=== PATIENT | female | born 1980 | race Two or more races ===

== ENCOUNTER 2017-07-10 09:00 | Inpatient (IN) | payer MEDICAID ==
[2017-07-10] VITALS (13 sets, daily range): BP systolic 102–130; BP diastolic 53–503
[~2017-07-10] VITALS: Ht 160 cm; Wt 49.8 kg
--- NOTE | 2017-07-10 10:11 | NUR ---
LANGUAGE LINE USED TO PROVIDE FURTHER INFORMATION ON WHY PT IS HERE AND WHAT ABNORMAL LABS WERE. PT NOW WITH IV ESTABLISHED, BLOOD DRAWN, URINE COLLECTED.
[2017-07-10 10:19] LABS: URINE BILIRUBIN - DIPSTICK NEGATIVE (NEGATIVE); URINE CLARITY CLEAR; URINE COLOR YELLOW; URINE GLUCOSE - DIPSTICK NEGATIVE (NEGATIVE); URINE KETONE NEGATIVE (NEGATIVE); URINE LEUK ESTERASE NEGATIVE (NEGATIVE); URINE NITRITE - DIPSTICK NEGATIVE (Negative); URINE PROTEIN - DIPSTICK NEGATIVE (NEG-TRACE); URINE UROBILINOGEN - DIPSTICK 0.2 E.U./dL (0.2)
[2017-07-10 10:22] LABS: URINE BLOOD DIPSTICK TRACE (NEGATIVE)
[2017-07-10 10:24] LABS: IMMATURE GRANULOCYTES 0.2 % (0.0-1.0); MEAN CELL VOLUME 59.5 fL CALC (80.0-100.0); MEAN CORPUSCULAR HGB 14.5 pG CALC (26.0-32.0); MEAN CORPUSCULAR HGB CONC 24.4 g/L CALC (32.0-36.0); NEUT# 2.77 thou/uL (2.00-7.15); RED BLOOD COUNT 3.31 mill/uL (4.20-5.60); RED CELL DISTRI WIDTH 20.9 % (11.5-15.5)
[2017-07-10 10:31] LABS: ALBUMIN 3.9 g/dL (3.2-5.0); ALKALINE PHOSPHATASE 44 u/l (38-126); ANION GAP 15 (6-22 (CALC)); BILIRUBIN, TOTAL 0.4 mg/dL (0.0-1.4); BUN 11 mg/dL (7-17); BUN/CREATININE RATIO 19 (12-20 (CALC)); CALCIUM 9.1 mg/dL (8.4-10.2); CARBON DIOXIDE 23 mmol/l (22-30); CHLORIDE 110 mmol/l (95-108); CREATININE 0.6 mg/dL (0.5-1.0); GFR > 60 ML/MIN (>=60 (CALC)); GFR FOR AFR.AMER. > 60 ML/MIN (>=60 (CALC)); GLUCOSE 104 mg/dL (65-105); POTASSIUM 4.3 mmol/l (3.5-5.1); SGOT/AST 17 u/l (14-36); SGPT/ALT 23 u/l (9-52); SODIUM 144 mmol/l (137-146); TOTAL PROTEIN 6.9 g/dL (6.3-8.2)
[2017-07-10 10:34] LABS: HEMATOCRIT 19.7 % (37.0-47.0); HEMOGLOBIN 4.8 g/dl (12.0-16.0)
--- NOTE | 2017-07-10 13:33 | NUR ---
FIRST UNIT OF PRBCs INFUSING WITHOUT INCIDENT. REPORT TO EDGARD, TO FLOOR SOON.
--- NOTE | 2017-07-10 13:42 | NUR ---
REPORT RECEIVED FROM EDGARD WHO RECEIVED REPORT FROM MELCHOR IN ED. PT ARRIVED ON UNIT VIA STRETCHER AND TRANSFERRED TO BED. BAG # 1 OF PRBC INFUSING AT THIS TIME, PT ALERT AND ORIENTED, SPEAKS MONGALI LANGUAGE, FAMILY MEMBER AT BEDSIDE. DENIES PAIN AT THIS TIME BUT REPORTS SHE HAS BEEN DIZZY AT TIMES BEFORE COMING TO HOSPITAL. ORIENTED TO ROOM AND CALL LING, WILL CONTINUE TO MONITOR.
--- NOTE | 2017-07-10 13:58 | NUR ---
PT TAKEN TO ROOM 270 WITHOUT INCIDENT.
--- NOTE | 2017-07-10 16:03 | NUR ---
IST UNIT PRBC INFUSED WITHOUT COMPLICATION, 2ND UNIT JUST BEGUN AND PT IS BEING MONITORED. SNACK OFFERED.
--- NOTE | 2017-07-10 17:53 | NUR ---
PT C/O HEADACHE, COOL COMPRESS OFFERED AND APPLIED, DR GREER CONTACTED AND GAVE ORDERS FOR TYLENOL, PT OFFERED TYLENOL AT THIS TIME BUT REFUSED IT STATING THE COOL COMPRESS RELIEVED HER PAIN, WILL CONTINUE TO MONITOR.
--- NOTE | 2017-07-10 18:08 | NUR ---
PT TOLERATED 2ND UNIT PRBC WELL.
--- NOTE | 2017-07-10 18:32 | NUR ---
TRANSFUSION VS DOCUMENTED BP = 126/503. CORRECT BP IS 126/53
--- NOTE | 2017-07-10 19:50 | NUR ---
PT RESTING IN SEMI FOWLERS POSITION WITH FAMILY AT BEDSIDE;ASSESSMENT COMPLETED;#20G TO LAC FLUSHED AND PATENT;RESPIRATIONS EVEN AND UNLABORED ON RA;PT EDUCATED ON RECEIVING HER LAST UNIT OF PRBC'S AND VERBALIZES UNDERSTANDING;SIGNS AND SYMPTOMS OF BLOOD TRANSFUSIONS REVIEWED AND PT AGREES;PT VOICES NO COMPLAINTS OF PAIN OR DISCOMFORTS;SAFETY PRECAUTIONS REINFORCED AND PT EDUCATED TO CALL FOR ASSISTANCE IF NEEDED;BED IN LOWEST POSITION WITH CALL [facility] IN REACH;WILL CONTINUE TO MONITOR
--- NOTE | 2017-07-10 19:52 | NUR ---
3RD UNIT OF PRBC'S ADMINISTERED BY QUINN AND CHRIS KUMAR;QUINN TO REMAIN IN THE ROOM WITH PT AND MONITOR S/S OF BLOOD TRANSFUSION REACTIONS OF X15 MINS
--- NOTE | 2017-07-10 20:23 | NUR ---
PT COMPLAINS OF HEADACHE PAIN RAING 6/10 ON THE PAIN SCALE AND REQUESTS PAIN MEDICATION;PT MEDICATED WITH PRN TYLENOL 650MG AND COOL COMPRESS PROVIDED;PT DENIES ANY OTHER NEEDS AT THIS TIME;CALL LIGHT IN REACH;WILL CONTINUE TO MONITOR
--- NOTE | 2017-07-10 22:45 | NUR ---
3RD UNIT OF PRBC'S COMPLETED AT THIS TIME;VS OBTAINED;PT COMPLAINS OF LEFT SIDED ABDOMINAL PAIN RATING 5/10 ON THE PAIN SCALE;PT REPORTS THAT PAIN MAY BE R/T GAS;PT ENCOURAGED TO WALK THE HALLS;WILL CONTINUE TO MONITOR
--- NOTE | 2017-07-10 22:55 | NUR ---
PT REPORTS NO RELIEF AFTER AMBULATING ALL 3 HALLWAYS;MD TO BE NOTIFED OF PERSISTENT PAIN
--- NOTE | 2017-07-10 23:05 | NUR ---
NOTIFED OF ABDOMINAL PAIN;ORDER FOR MORPHINE 2MG X1 NOW OBTAINED
--- NOTE | 2017-07-10 23:40 | NUR ---
PT MEDICATED WITH MORPHINE 2MG FOR LEFT SIDED ABDOMINAL PAIN RATING 5/10 ON THE PAIN SCALE;SPOUSE AND FAMILY MEMBER AT BEDSIDE;IV FLUIDS INFUSING WELL;PT DENIES ANY OTHER NEEDS AT THIS TIME;WILL CONTINUE TO MONITOR
--- NOTE | 2017-07-11 04:30 | NUR ---
NOTIFED OF PT VOMITING AND COMPLAINING OF ABDOMINAL PAIN;AWAITING NEW ORDERS AT THIS TIME
--- NOTE | 2017-07-11 05:30 | NUR ---
PT MEDICATED WITH PRN BENTYL,PROTONIX AND ZOFRAN PER MD ORDERS;SPOUSE AT BEDSIDE REPORTS NOTHING IS HELPING TO RESOLVE PAIN;LAB AT BEDSIDE;RESPIRATIONS EVEN BUT SHWLLOW,PT ENCOURAGED TO TAKE SOME DEEP BREATHS;WILL CONTINUE TO MONITOR
[2017-07-11 05:56] LABS: HEMATOCRIT 35.3 % (37.0-47.0); HEMOGLOBIN 10.3 g/dl (12.0-16.0); MEAN CELL VOLUME 69.9 fL CALC (80.0-100.0); MEAN CORPUSCULAR HGB 20.4 pG CALC (26.0-32.0); MEAN CORPUSCULAR HGB CONC 29.2 g/L CALC (32.0-36.0); RED BLOOD COUNT 5.05 mill/uL (4.20-5.60); RED CELL DISTRI WIDTH 27.9 % (11.5-15.5)
[2017-07-11 06:15] LABS: ANION GAP 16 (6-22 (CALC)); BUN 10 mg/dL (7-17); BUN/CREATININE RATIO 19 (12-20 (CALC)); CALCIUM 8.8 mg/dL (8.4-10.2); CARBON DIOXIDE 21 mmol/l (22-30); CHLORIDE 108 mmol/l (95-108); CREATININE 0.5 mg/dL (0.5-1.0); GFR > 60 ML/MIN (>=60 (CALC)); GFR FOR AFR.AMER. > 60 ML/MIN (>=60 (CALC)); GLUCOSE 97 mg/dL (65-105); SODIUM 141 mmol/l (137-146)
[2017-07-11 06:25] VITALS: BP 128/84
--- NOTE | 2017-07-11 07:00 | NUR ---
RECEIVED BEDSIDE REPORT FROM UCHE CESPEDES. RESTING IN SUPINE POSITION WITH EYES CLOSED, AWAKENS EASILY. RESPS EVEN AND UNLABORED ON ROOM AIR, TELE MONITOR IN PLACE. C/O ABD AND CHEST PAIN CONTINUES. WILL MEDICATE PER MAR. FAMILY AT BEDSIDE. #20 RAC INFUSING WITHOUT DIFFICULTY, SITE APPEARS HEALTHY. PLAN OF CARE DISCUSSED. SAFETY PRECAUTIONS REINFORCED. BED IN LOWEST POSITION WITH WHEELS LOCKED. CALL LIGHT WITHIN REACH. ENCOURAGED PT AND FAMILY TO CALL FOR ANY NEEDS.
[2017-07-11 08:42] LABS: IMMATURE GRANULOCYTES 0.9 % (0.0-1.0); NEUT# 13.57 thou/uL (2.00-7.15)
[2017-07-11 08:48] VITALS: BP 118/75
--- NOTE | 2017-07-11 11:15 | NUR ---
DR PAGE IN WITH PT, NEW ORDERS RECEIVED.
[2017-07-11 11:28] VITALS: BP 117/73
--- NOTE | 2017-07-11 13:35 | NUR ---
TO CT SCAN IN STABLE CONDITION VIA WHEELCHAIR ACCOMPANIED BY VOLUNTEER.
--- NOTE | 2017-07-11 14:10 | NUR ---
RETURNED FROM CT SCAN VIA WHEELCHAIR ACCOMPANIED BY VOLUNTEER.
--- NOTE | 2017-07-11 15:00 | NUR ---
MEDICATED WITH TYLENOL PO FOR C/O 6/10 HEADACHE. RESPS EVEN AND UNLABORED ON ROOM AIR, TELE MONITOR IN PLACE. [facility]. WILL CONTINUE TO MONITOR.
--- NOTE | 2017-07-11 15:15 | NUR ---
TO RADIOLOGY IN STABLE CONDITION VIA WHEELCHAIR ACCOMPANIED BY VOLUNTEER.
--- NOTE | 2017-07-11 15:17 | NUR ---
Spoke to patient today in [employer] regarding her medications. Patient reported having a headache with a pain level of 6. Patient was given tylenol for her headache not too long ago. Spoke to patient regaring side-effects of her medications. Patient did not have any questions/ concerns regarding her medications.
--- NOTE | 2017-07-11 15:40 | NUR ---
RETURNED FROM RADILOGY VIA WHEELCHAIR ACCOMPANIED BY VOLUNTEER. AMBULATED TO BED WITH STEADY GAIT. #22 LAC INFUSING WITHOUT DIFFICULTY, SITE APPEARS HEALTHY. CALL LIGHT WITHIN REACH. FAMILY AT BEDSIDE. WILL CONTINUE TO MONITOR.
[2017-07-11 15:50] VITALS: BP 123/82
[2017-07-11 17:13] LABS: CHOLESTEROL HDL RATIO 3.1 (<4.4 (CALC))
[2017-07-11 19:00] VITALS: BP 135/82
--- NOTE | 2017-07-11 21:10 | NUR ---
PT RESTING IN BED WITH MULTIPLE FAMILY MEMBERS AT BEDSIDE;ASSESSMENT COMPLETED;#22G TO LAC INFUSING NS @ 125ML/HR WELL;RESPIRATIONS REMAINS EVEN AND UNLABORED ON RA;PT COMPLAINS OF HEADACHE PAIN RATING 5/10 ON THE PAIN SCALE AND REQUESTS PAIN MEDICATION;PT MEDICATED WITH PRN TYLENOL 650MG;TELE MONITOR IN PLACE;SAFETY PRECAUTIONS REINFORCED;CALL LIGHT IN REACH;WILL CONTINUE TO MONITOR FOR EFFECT
[2017-07-12] VITALS (7 sets, daily range): BP systolic 114–132; BP diastolic 72–83
--- NOTE | 2017-07-12 00:20 | NUR ---
PT RESTING AT BEDSIDE WITH SPOUSE AND FAMILY IN THE ROOM;IV FLUIDS INFUSING WELL TO LAC;PT DENIES ANY PAIN OR DISCOMFORTS;RESPIRATIONS EVEN AND UNLABORED ON RA;PT EDUCATED TO CALL FOR ASSISTANCE IF NEEDED;CALL LIGHT IN REACH;WILL CONTINUE TO MONITOR
--- NOTE | 2017-07-12 04:17 | NUR ---
PT RESTING IN SUPINE POSITION WITH SPOUSE AT BEDSIDE;VS OBTAINED;PT VOICES NO PAIN OR DISCOMFORTS;IV FLUIDS INFUSING WELL TO LAC;CALL LIGHT IN REACH;WILL CONTINUE TO MONITOR
[2017-07-12 05:07] LABS: HEMATOCRIT 33.6 % (37.0-47.0); HEMOGLOBIN 9.8 g/dl (12.0-16.0); IMMATURE GRANULOCYTES 0.6 % (0.0-1.0); MEAN CORPUSCULAR HGB 20.4 pG CALC (26.0-32.0); MEAN CORPUSCULAR HGB CONC 29.2 g/L CALC (32.0-36.0); NEUT# 6.06 thou/uL (2.00-7.15); RED BLOOD COUNT 4.8 mill/uL (4.20-5.60); RED CELL DISTRI WIDTH 28.2 % (11.5-15.5)
[2017-07-12 05:18] LABS: ANION GAP 13 (6-22 (CALC)); BUN 5 mg/dL (7-17); BUN/CREATININE RATIO 8 (12-20 (CALC)); CALCIUM 8.8 mg/dL (8.4-10.2); CARBON DIOXIDE 22 mmol/l (22-30); CHLORIDE 113 mmol/l (95-108); CREATININE 0.6 mg/dL (0.5-1.0); GFR > 60 ML/MIN (>=60 (CALC)); GFR FOR AFR.AMER. > 60 ML/MIN (>=60 (CALC)); GLUCOSE 99 mg/dL (65-105); MAGNESIUM 1.9 mg/dL (1.6-2.3); POTASSIUM 3.7 mmol/l (3.5-5.1); SODIUM 144 mmol/l (137-146)
--- NOTE | 2017-07-12 08:15 | NUR ---
PT SITTING ON SIDE OF BED; MEDICATED ORDERED FOR C/O MARTIN 12/13; IVF INFUSING WITHOUT DIFFICULTY; CALL LING WITHIN REACH; WILL CONTINUE TO MONITOR.
--- NOTE | 2017-07-12 12:30 | NUR ---
PT SPOUSE BOUGHT IN LUNCH FOR HER; NO COMPLAINTS VOICED; CALL LING WITHIN REACH; WILL CONTINUE TO MONITOR.
--- NOTE | 2017-07-12 15:30 | NUR ---
PT IN SUPINE POSITION; C/O MARTIN 05/15; MEDICATED ORDERED; CALL LING WITHIN REACH; WILL CONTINUE TO MONITOR.
--- NOTE | 2017-07-12 17:30 | NUR ---
DR. CARRASCO IN TO SEE PT;
--- NOTE | 2017-07-12 17:57 | NUR ---
PT RESTING WITH EYES CLOSED; NO S/SX OF REACTION
--- NOTE | 2017-07-12 19:40 | NUR ---
PT RESTING AT BEDSIDE WITH FAMILY;PT COMPLAINS OF HEADACHE PAIN RATING 5/10 ON THE PAIN SCALE AND REQUESTS PAIN MEDICATION;PT EDUCATED ON MEDICATION SCHEDULE AND THAT IT IS TO SOON FOR PRN TYLENOL,PT VERBALIZES UNDERSTANDING;ASSESSMENT COMPLETED;#22G TO LAC INFUSING NS @ 75ML/HR WELL;TELE MONITOR IN PLACE;RESPIRATIONS EVEN AND UNLABORED ON RA;SKIN INTACT;SAFETY PRECAUTIONS REINFORCED AND PT VERBALIZES UNDERSTANDING;PT EDUCATED TO CALL FOR ASSISTANCE IF NEEDED;CALL LIGHT IN REACH;WILL CONTINUE TO MONITOR
--- NOTE | 2017-07-12 21:00 | NUR ---
PT COMPAINS OF RIGHT SIDED HEADACHE PAIN RATING 8/10 ON THE PAIN SCALE;PT MEDICATED WITH PRN TYLENOL 650MG AND COOL COMPRESS;WILL CONTINUE TO MONITOR FOR EFFECT
--- NOTE | 2017-07-13 00:50 | NUR ---
PT APPERAS TO BE SLEEPING WITH EYES CLOSED IN SUPINE POSITION WITH SPOUSE AND FAMILY MEMBER AT BEDSIDE;NO S/S OF DISTRESS NOTED;RESPIRATIONS EVEN AND UNLABORED ON RA;IV FLUIDS INFUSING WELL TO LAC;TELE MONITOR IN PLACE;CALL LIGHT IN REACH;WILL CONTINUE TO MONITOR
[2017-07-13 04:55] VITALS: BP 132/83
--- NOTE | 2017-07-13 04:55 | NUR ---
PT RESTING IN SUPINE POSITION WITH SPOUSE AND FAMILY MEMBER AT BEDSIDE;RESPIRATIONS SHALLOW BUT EVEN;IV FLUIDS INFUSING WELL TO LAC;TELE MONITOR IN PLACE;VS OBTAINED;CALL LIGHT IN REACH;WILL CONTINUE TO MONITOR
[2017-07-13 05:35] LABS: HEMATOCRIT 35.7 % (37.0-47.0); HEMOGLOBIN 10.2 g/dl (12.0-16.0); IMMATURE GRANULOCYTES 0.5 % (0.0-1.0); MEAN CELL VOLUME 71.3 fL CALC (80.0-100.0); MEAN CORPUSCULAR HGB 20.4 pG CALC (26.0-32.0); MEAN CORPUSCULAR HGB CONC 28.6 g/L CALC (32.0-36.0); NEUT# 4.88 thou/uL (2.00-7.15); RED BLOOD COUNT 5.01 mill/uL (4.20-5.60); RED CELL DISTRI WIDTH 29.7 % (11.5-15.5)
--- NOTE | 2017-07-13 05:50 | NUR ---
PT REQUESTS PAIN MEDICATION FOR HEADACHE PAIN RATING 6/10 ON THE PAIN SCALE;PT MEDICATED WITH PRN TYLENOL 650MG AND COOL COMPRESS APPLIED TO FOREHEAD;WILL CONTINUE TO MONITOR FOR EFFECT
[2017-07-13 05:59] LABS: ANION GAP 15 (6-22 (CALC)); BUN 4 mg/dL (7-17); BUN/CREATININE RATIO 6 (12-20 (CALC)); CALCIUM 9.4 mg/dL (8.4-10.2); CARBON DIOXIDE 21 mmol/l (22-30); CHLORIDE 111 mmol/l (95-108); CREATININE 0.6 mg/dL (0.5-1.0); GFR > 60 ML/MIN (>=60 (CALC)); GFR FOR AFR.AMER. > 60 ML/MIN (>=60 (CALC)); GLUCOSE 89 mg/dL (65-105); MAGNESIUM 1.9 mg/dL (1.6-2.3); POTASSIUM 3.9 mmol/l (3.5-5.1); SODIUM 143 mmol/l (137-146)
--- NOTE | 2017-07-13 07:00 | NUR ---
RECEIVED BEDSIDE REPORT FROM UCHE CESPEDES. RESTING IN BED WITH EYES CLOSED, AWAKENS EASILY. FAMILY AT BEDSIDE. RESPS EVEN AND UNLABORED ON ROOM AIR, TELE MONITOR IN PLACE. #20 LAC INFUSING WITHOUT DIFFICULTY, SITE APPEARS HEALTHY. DENIES PAIN OR DISCOMFORT. PLAN OF CARE DISCUSSED. SAFETY PRECAUTIONS REINFORCED. BED IN LOWEST POSITION WITH WHEELS LOCKED. CALL LIGHT WITHIN REACH. WILL CONTINUE TO MONITOR.
[2017-07-13 08:29] VITALS: BP 133/79
--- NOTE | 2017-07-13 09:15 | NUR ---
DR CARRASCO IN WITH PT, AWAITING NEW ORDERS.
--- NOTE | 2017-07-13 09:45 | NUR ---
DR PAGE IN WITH PT, NEW ORDERS RECEIVED.
[2017-07-13 11:16] VITALS: BP 135/78
--- NOTE | 2017-07-13 12:00 | NUR ---
SITTING IN BED EATING LUNCH. DENIES PAIN OR DISCOMFORT. VOICES NO NEEDS. CALL LIGHT WITHIN REACH. FAMILY AT BEDSIDE.
[2017-07-13 15:31] VITALS: BP 123/72
--- NOTE | 2017-07-13 16:00 | NUR ---
RESTING QUIETLY IN ROOM. FAMILY AT BEDSIDE. VOICES NO NEEDS AT THIS TIME. CALL LIGHT WITHIN REACH. WILL CONTINUE TO MONITOR.
[2017-07-13 19:15] VITALS: BP 132/78
--- NOTE | 2017-07-13 19:15 | NUR ---
PT SITTING UP IN BED. NIECE IN ROOM. PT IS ALERT AND ORIENTED X3. PERRLA. RESP ARE EVEN AND UNLABORED. LUNGS ARE CLEAR. TELE IN PLACE. HR REGULAR. PULSES PALPABLE THROUGHOUT. NO EDEMA NOTED. BS ACTIVE. PT DENIES BOWEL MOVEMENT TODAY. #20 LAC. NO REDNESS OR EDEMA NOTED. WILL CONTINUE TO MONITOR.
[2017-07-13 23:45] VITALS: BP 120/78
--- NOTE | 2017-07-14 | NUR ---
PT RESTING IN BED WITH EYES CLOSED. SPOUSE AND NIECE IN ROOM. RESP ARE EVEN AND UNLABORED. NO DISTRESS NOTED. WILL CONTINUE TO MONITOR
--- NOTE | 2017-07-14 02:30 | NUR ---
PT CALLED AND STATES THAT SHE HAS A HEADACHE AGAIN. TYLENOL ADMINISTERED, WILL CONTINUE TO MONIOTOR
--- NOTE | 2017-07-14 04:00 | NUR ---
PT RESTING IN BED. SPOUSE IN ROOM. SCOTTIE IN ROOM. NO DISTRESS NOTED. NO HCANGE IN PT STATUS. WILL CONTINUE TO MONITOR/
[2017-07-14 04:30] VITALS: BP 107/74
[2017-07-14 05:49] LABS: HEMATOCRIT 34.1 % (37.0-47.0); HEMOGLOBIN 9.6 g/dl (12.0-16.0); IMMATURE GRANULOCYTES 0.5 % (0.0-1.0); MEAN CORPUSCULAR HGB 20.6 pG CALC (26.0-32.0); MEAN CORPUSCULAR HGB CONC 28.2 g/L CALC (32.0-36.0); NEUT# 4.48 thou/uL (2.00-7.15); RED BLOOD COUNT 4.67 mill/uL (4.20-5.60); RED CELL DISTRI WIDTH 31.6 % (11.5-15.5)
[2017-07-14 06:09] LABS: ANION GAP 14 (6-22 (CALC)); BUN 7 mg/dL (7-17); BUN/CREATININE RATIO 11 (12-20 (CALC)); CALCIUM 9.2 mg/dL (8.4-10.2); CARBON DIOXIDE 23 mmol/l (22-30); CHLORIDE 108 mmol/l (95-108); CREATININE 0.6 mg/dL (0.5-1.0); GFR > 60 ML/MIN (>=60 (CALC)); GFR FOR AFR.AMER. > 60 ML/MIN (>=60 (CALC)); GLUCOSE 87 mg/dL (65-105); POTASSIUM 3.7 mmol/l (3.5-5.1); SODIUM 142 mmol/l (137-146)
--- NOTE | 2017-07-14 07:00 | NUR ---
BEDSIDE REPORT RECIEVED FROM CHRIS DUGGAN. PT ASLEEP ON ENTRY. NO SIGNS OF DISTRESS. RESP EVEN AND UNLABORED. FAMILY MEMBER SLEEPING ON COUCH IN ROOM. SAFETY PRECAUTIONS IN PLACE. CALL LIGHT WITHIN REACH. WILL CONTINUE TO MONITOR HOURLY.
[2017-07-14 08:26] VITALS: BP 116/77
--- NOTE | 2017-07-14 08:50 | NUR ---
PT STATES THAT SHE HAS A HEADACHE. PT RATED HEADACHE A 5 ON PAIN SCALE. TYLENOL GIVEN FOR HEADACHE. WILL CONTINUE TO MONITOR.
[2017-07-14 11:18] VITALS: BP 137/87
[2017-07-14] MEDS ORDERED: BL VIT B-12500 MCG PO (13:52)
[2017-07-14] MEDS ORDERED: FERR SULFATE325 MG PO (13:52)
[2017-07-14] MEDS ORDERED: LEXAPRO10 MG PO (13:52)
[2017-07-14] MEDS ORDERED: PANTOPRAZOLE SO40 M1 PO (13:52)
[2017-07-14] MEDS ORDERED: ULTRAM50 M1 PO (13:53)
--- NOTE | 2017-07-14 16:00 | NUR ---
PT RESTING IN BED WITH FAMILY AT BEDSIDE. NO COMPLAINTS OF PAIN. RESP EVEN AND UNLABORED. SAFETY PRECAUTIONS REINFORCED. CALL LIGHT WITHIN REACH.
--- NOTE | 2017-07-14 17:15 | NUR ---
Discharge instructions given. Patient verbalizes understanding of same. Discharged in stable condition via Wheelchair to Home with family. All belongings sent with pt.
--- NOTE | 2017-07-15 11:21 | NUR ---
pt presented to pharmacy hoping to speak to Maeve (student who also speaks Croatian). Pt had medicaid thru [facility] and had trouble filling rxs at [facility]. i called [facility], they couldnt find prescription coverage for the pt. called [facility], pharmacist veronique agreed to put discount card on file for pt and help find otc items (iron and b12) instructed pt to take rx to [facility], provided address. pt seemed to understand.
--- NOTE | 2017-07-15 14:59 | NUR ---
PT'S WOUND CULTURE IN MOUTH WAS COLLECTED DURING STAY. RESULTS SHOW [facility] STREP. PER KASANDRA RODRIGUEZ, CALLED IN NEW RX FOR PEN VK 500 MG PO Q8H X7 DAYS TO [facility] IN [place] ON 07/15/17 @ [id number]. TRIED TO CALL PT, NUMBER ON ELIS[facility] WAS OUT OF SERVICE AND SAME NUMBER LISTED FOR NEXT OF KIN
--- NOTE | 2017-07-18 14:41 | NUR ---
PT'S WAS IN TUESDAY WITH RX AND QUESTIONS REGARDING RXS FROM [facility]. SENT HIM TO [facility] WHERE ANOTHER RX FOR ABX WAS ALSO SENT IN. FOLLOWED-UP WITH [facility] TODAY, PT HAS SHARE OF COST AND REC'D 2-3 DAYS SUPPLY OF EACH MED UNTIL SHARE OF COST WAS MET. [place] SILVA @ [facility], REBILLED ALL RX TO MEDICAID AND THEY WENT THROUGH WITH NO COST. WILL HAVE RXS READY FOR PT. PHONE NUMBER ON FILE IS OUT OF SERVICE BUT RXS WILL BE READY @ [facility] FOR PT TO CREW DIRECTOR
== END 2017-07-14 17:15 | disposition home or self-care (01) | DRG 812 ==
LOC: ED 09:00 → ED-I 12:31 → ED 13:07 → MS2 13:08
PROVIDERS: Emergency Medicine; Nurse Practitioner Family; ADMIT Internal Medicine; ATTEND Internal Medicine
PROC: 30233N1 Transfusion of Nonautologous Red Blood Cells into Peripheral Vein, Percutaneous Approach (ICD-10-PCS; principal; 2017-07-10)
PROC: 30233N1 Transfusion of Nonautologous Red Blood Cells into Peripheral Vein, Percutaneous Approach (ICD-10-PCS; 2017-07-10)
PROC: 30233N1 Transfusion of Nonautologous Red Blood Cells into Peripheral Vein, Percutaneous Approach (ICD-10-PCS; 2017-07-10)
DX: D50.0 Iron deficiency anemia secondary to blood loss (chronic) (principal); E56.9 Vitamin deficiency, unspecified; F32.9 Major depressive disorder, single episode, unspecified; N92.1 Excessive and frequent menstruation with irregular cycle; K12.1 Other forms of stomatitis; R07.9 Chest pain, unspecified; D25.9 Leiomyoma of uterus, unspecified; R19.00 Intra-abdominal and pelvic swelling, mass and lump, unspecified site
CPT/HCPCS: J1756; P9016; Q9967

== ENCOUNTER 2017-09-16 07:15 | Day surgery (SDC) | payer SELFPAY ==
[~2017-09-16] VITALS: Ht 160 cm; Wt 54.9 kg
[~2017-09-16 07:15] MED LIST: BL VIT B-12500 MCG PO; FERR SULFATE325 MG PO; LEXAPRO10 MG PO; PANTOPRAZOLE SO40 M1 PO; ULTRAM50 M1 PO
[2017-09-16] MEDS ORDERED: LORTAB 7.57.5 MG PO (11:20)
[2017-09-16 14:05] VITALS: BP 111/74
== END 2017-09-16 13:40 | disposition home or self-care (01) | DRG 745 ==
LOC: ORM 07:15
PROVIDERS: ATTEND Obstetrics & Gynecology
PROC: 0UDB8ZX Extraction of Endometrium, Via Natural or Artificial Opening Endoscopic, Diagnostic (ICD-10-PCS; principal; 2017-09-16)
DX: N92.1 Excessive and frequent menstruation with irregular cycle (principal); D50.9 Iron deficiency anemia, unspecified; N85.8 Other specified noninflammatory disorders of uterus; N84.0 Polyp of corpus uteri; N88.2 Stricture and stenosis of cervix uteri; F41.9 Anxiety disorder, unspecified; K21.9 Gastro-esophageal reflux disease without esophagitis; N83.299 Other ovarian cyst, unspecified side; R63.4 Abnormal weight loss; N63.0 Unspecified lump in unspecified breast; R01.1 Cardiac murmur, unspecified; R00.2 Palpitations